=== PATIENT | female | born 1965 | race Caucasian/White ===

== ENCOUNTER → 2018-05-09 | Outpatient (CLI) | payer OTHER | LOC: FIMAGING 10:03 | PROVIDERS: ATTEND Midwife | DX: N64.4 Mastodynia (principal) ==

== ENCOUNTER → 2018-08-08 | Outpatient (CLI) | payer OTHER | LOC: FIMAGING 09:24 | PROVIDERS: ATTEND Midwife | DX: Z01.411 Encounter for gynecological examination (general) (routine) with abnormal findings (principal); R16.0 Hepatomegaly, not elsewhere classified ==